=== PATIENT | male | born 1985 ===

== ENCOUNTER 2021-05-24 23:21 | Emergency (ER) | payer SELFPAY ==
[2021-05-24] MEDS ORDERED: diphenhydrAMINE 50 MG/ML SDV IVPUSH ONE (23:47)
[2021-05-24] MEDS ORDERED: Sodium Chloride 0.9% 10 ML Syringe FLUSH PRN (23:47)
[2021-05-24] MEDS ORDERED: methylPREDNISolone Sodium Succinate 125 MG/2 ML SDV IVPUSH ONE (23:47)
[2021-05-24] MEDS ORDERED: Famotidine 20 MG/2 ML SDV IVPUSH ONE (23:48)
--- NOTE | 2021-05-24 23:54 | EDM.PDOC ---
ED HPI GENERAL MEDICAL PROBLEM - General Chief Complaint: General Stated Complaint: Swollen Genitals Time Seen by Provider: 05/24/21 23:27 Source of Information: Reports: Patient - History of Present Illness INITIAL COMMENTS - FREE TEXT/NARRATIVE: Andrzej is a 35 y/o male who presents to the ER with penile/foreskin swelling last night after he took some generic cold tablets (Dayquil/Nyquil). He was running a fever yesterday at home and had body aches. Tonight he had even more penile swelling. He also has a cock ring in place that he says he wears for 4-5 days at a time be fore removing it and he cannot remove the device tonight due to the swelling. He reports his pain level is 7-8/10, but declines need for pain meds at this time. Denies any is discharge. No itching or burning with urination. Denies recent intercourse. 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 Was COVID tested at his employer yesterday and was negative and tested again today and also negative. - Related Data Allergies Allergy/AdvReac Type Severity Reaction Status Date / Time caramel Allergy Hives, Verified 05/25/21 00:52 Nausea/Vomiting Home Meds: Home Meds . [No Known Home Meds] 05/25/21 [History] ED ROS GENERAL - Review of Systems Review Of Systems: See Below Constitutional: Reports: Fever, Malaise HEENT: Reports: No Symptoms Respiratory: Reports: No Symptoms Cardiovascular: Reports: No Symptoms Endocrine: Reports: No Symptoms GI/Abdominal: Reports: No Symptoms : Reports: Other (Penile/foreskin edema) Musculoskeletal: Reports: Other (Body aches) Skin: Reports: No Symptoms Neurological: Reports: No Symptoms Psychiatric: Reports: No Symptoms Hematologic/Lymphatic: Reports: No Symptoms ED EXAM, GENERAL - Physical Exam Exam: See Below General Appearance: Alert, WD/WN, No Apparent Distress Ears: Hearing Grossly Normal Throat/Mouth: Normal Inspection, Normal Lips, Normal Voice Head: Atraumatic, Normocephalic Respiratory/Chest: No Respiratory Distress GI/Abdominal: Normal Bowel Sounds, Soft (Male) Exam: Other (Note very edematous penis and foreskin, scrotum and testicles are not swollen adn appear normal, Cockring device in place around penis and scrotum adn unabel to remove it, due to the swelling in the foreskin.) Extremities: Normal Inspection, Normal Range of Motion, No Pedal Edema, Normal Capillary Refill Neurological: Alert, Oriented, CN II-XII Intact, No Motor/Sensory Deficits Skin Exam: Warm, Dry, Intact, Normal Color Course - Vital Signs Text/Narrative:: The patient was seen by the [employer]ER. Labs ordered. Consider infection, allergic reaction, trauma as differential dx. Will proceed with Benadryl 50mg IVP, SoluMedrol 125mg IVP, and Pepcid 20mg IVP if it is a severe allergic reaction. [id number] Labs reviewed, note WBC=15.4, neuts=85.1%, CMP neg, CRP=16.2; UA Ketones=trace, Blood=moderate. No change in swelling in the penis/foreskin region. 0050 [facility] contacted and spoke with Dr House. Advised attempt to cut off the ring with bolt cutters, no bolt cutters large enough to cut device available here in [place] ER. Patient to transfer via POV to [place] [facility]. Patient declined need for pain meds. Most recent rkop=059.0, no further meds given at this time. Left the ER in stable condition with his significant other. Last Recorded V/S: Last Vital Signs Temp 37.5 C 05/24/21 23:30 Pulse 102 H 05/24/21 23:30 Resp 18 05/24/21 23:30 BP 119/93 H 05/24/21 23:30 Pulse Ox 98 05/24/21 23:30 - Orders/Labs/Meds Orders: Active Orders 24 hr Category Date Time Status Sodium Chloride 0.9% [Saline Flush] Med 05/24/21 23:42 Ordered 10 ml FLUSH ASDIRECTED PRN Sodium Chloride 0.9% [Saline Flush] Med 05/24/21 23:47 Ordered 10 ml FLUSH ASDIRECTED PRN Saline Lock Insert [OM.PC] Stat Oth 05/24/21 23:37 Ordered Saline Lock Insert [OM.PC] Stat Oth 05/24/21 23:47 Ordered Medication Orders Sodium Chloride (Sodium Chloride 0.9% 10 Ml Syringe) 10 ml FLUSH ASDIRECTED PRN PRN Reason: Keep Vein Open Last Admin: 05/25/21 00:08 Dose: 10 ml Documented by: Admin: 05/25/21 00:02 Dose: 10 ml Documented by: FABIENNE Sodium Chloride (Sodium Chloride 0.9% 10 Ml Syringe) 10 ml FLUSH ASDIRECTED PRN PRN Reason: Keep Vein Open Labs: Laboratory Tests 05/24/21 05/24/21 05/24/21 Range/Units 23:45 23:45 23:45 WBC 15.4 H (4.0-10.2) K/uL RBC 5.34 (4.33-5.41) M/uL Hgb 15.6 (13.1-16.8) g/dL Hct 45.7 (39.0-49.0) % MCV 85.6 (84.0-98.0) fL MCH 29.2 (28.2-33.3) pg MCHC 34.1 (31.7-36.0) g/dL RDW 13.5 (11.2-14.1) % Plt Count 223 (150-350) K/uL Neut % (Auto) 85.1 H (45.0-80.0) % Lymph % (Auto) 7.2 L (10.0-50.0) % [place] % (Auto) 7.3 (2.0-14.0) % Eos % (Auto) 0.3 (0.0-5.0) % Baso % (Auto) 0.1 (0.0-2.0) % Neut # (Auto) 13.10 H (1.40-7.00) K/uL Lymph # (Auto) 1.11 (0.50-3.50) K/uL [place] # (Auto) 1.13 H (0.00-1.00) K/uL Eos # (Auto) 0.05 (0.00-0.50) K/uL Baso # (Auto) 0.02 (0.00-0.20) K/uL ESR (0-15) mm/hr Sodium 139 (136-145) mmol/L Potassium 3.7 (3.5-5.1) mmol/L Chloride 103 (98-107) mmol/L Carbon Dioxide 22.7 (21.0-32.0) mmol/L Anion Gap 13.3 (7-15) meq/L BUN 19 H (7-18) mg/dL Creatinine 1.04 (0.51-1.17) mg/dL Est Cr Clr Drug Dosing 116.36 mL/min Estimated GFR (MDRD) > 60 mL/min Glucose 115 H (70-99) mg/dL Calcium 9.1 (8.5-10.1) mg/dL Total Bilirubin 0.5 (0.2-1.0) mg/dL AST 23 (15-37) U/L ALT 43 (12-78) U/L Alkaline Phosphatase 83 (46-116) IU/L C-Reactive Protein 16.2 H (<=0.9) mg/dL Total Protein 7.4 (6.4-8.2) g/dL Albumin 3.8 (3.4-5.0) g/dL Specimen Type Urine Color Urine Appearance Urine pH (5.0-9.0) Ur Specific [place] (1.005-1.030) Urine Protein (NEGATIVE) mg/dL Urine Glucose (UA) (NEGATIVE) mg/dL Urine Ketones (NEGATIVE) mg/dL Urine Occult Blood (NEGATIVE) Urine Nitrite (NEGATIVE) Urine Bilirubin (NEGATIVE) Urine Urobilinogen (0.2-1.0) E.U./dL Ur Leukocyte Esterase (NEGATIVE) Urine RBC /HPF Urine WBC /HPF Ur Epithelial Cells /LPF Amorphous Sediment (0/HPF) /HPF Urine Bacteria (NONE TO FEW) /HPF Urine Mucus (NEGATIVE) /LPF 05/24/21 05/25/21 Range/Units 23:45 00:35 WBC (4.0-10.2) K/uL RBC (4.33-5.41) M/uL Hgb (13.1-16.8) g/dL Hct (39.0-49.0) % MCV (84.0-98.0) fL MCH (28.2-33.3) pg MCHC (31.7-36.0) g/dL RDW (11.2-14.1) % Plt Count (150-350) K/uL Neut % (Auto) (45.0-80.0) % Lymph % (Auto) (10.0-50.0) % [place] % (Auto) (2.0-14.0) % Eos % (Auto) (0.0-5.0) % Baso % (Auto) (0.0-2.0) % Neut # (Auto) (1.40-7.00) K/uL Lymph # (Auto) (0.50-3.50) K/uL [place] # (Auto) (0.00-1.00) K/uL Eos # (Auto) (0.00-0.50) K/uL Baso # (Auto) (0.00-0.20) K/uL ESR 27 H (0-15) mm/hr Sodium (136-145) mmol/L Potassium (3.5-5.1) mmol/L Chloride (98-107) mmol/L Carbon Dioxide (21.0-32.0) mmol/L Anion Gap (7-15) meq/L BUN (7-18) mg/dL Creatinine (0.51-1.17) mg/dL Est Cr Clr Drug Dosing mL/min Estimated GFR (MDRD) mL/min Glucose (70-99) mg/dL Calcium (8.5-10.1) mg/dL Total Bilirubin (0.2-1.0) mg/dL AST (15-37) U/L ALT (12-78) U/L Alkaline Phosphatase (46-116) IU/L C-Reactive Protein (<=0.9) mg/dL Total Protein (6.4-8.2) g/dL Albumin (3.4-5.0) g/dL Specimen Type Urincc Urine Color Yellow Urine Appearance Cloudy Urine pH 7.0 (5.0-9.0) Ur Specific [place] 1.020 (1.005-1.030) Urine Protein 30 H (NEGATIVE) mg/dL Urine Glucose (UA) Negative (NEGATIVE) mg/dL Urine Ketones Trace H (NEGATIVE) mg/dL Urine Occult Blood Moderate H (NEGATIVE) Urine Nitrite Negative (NEGATIVE) Urine Bilirubin Negative (NEGATIVE) Urine Urobilinogen 2.0 H (0.2-1.0) E.U./dL Ur Leukocyte Esterase Negative (NEGATIVE) Urine RBC 20-30 H /HPF Urine WBC 0-5 /HPF Ur Epithelial Cells Few /LPF Amorphous Sediment Many H (0/HPF) /HPF Urine Bacteria Not seen (NONE TO FEW) /HPF Urine Mucus Few H (NEGATIVE) /LPF Meds: Medications Generic Name Dose Route Start Last Admin Trade Name Joie PRN Reason Stop Dose Admin Sodium Chloride 10 ml 05/24/21 23:42 05/25/21 00:08 Sodium Chloride 0.9% 10 Ml Syringe FLUSH 10 ml ASDIRECTED PRN Administration Keep Vein Open Sodium Chloride 10 ml 05/24/21 23:47 Sodium Chloride 0.9% 10 Ml Syringe FLUSH ASDIRECTED PRN Keep Vein Open Discontinued Medications Generic Name Dose Route Start Last Admin Trade Name Joie PRN Reason Stop Dose Admin Diphenhydramine HCl 50 mg 05/24/21 23:47 05/25/21 00:01 Diphenhydramine 50 Mg/Ml Sdv IVPUSH 05/24/21 23:48 50 mg ONETIME ONE Administration Famotidine 20 mg 05/24/21 23:48 05/25/21 00:01 Famotidine 20 Mg/2 Ml Sdv IVPUSH 05/24/21 23:49 20 mg ONETIME ONE Administration Methylprednisolone Sodium Succinate 125 mg 05/24/21 23:47 05/25/21 00:01 Methylprednisolone Sodium Succinate 125 Mg/2 Ml Sdv IVPUSH 05/24/21 23:48 125 mg ONETIME ONE Administration Departure - Departure Time of Disposition: 01:01 Disposition: DC/Tfer to Acute Hospital 02 Condition: Good Clinical Impression: Swelling of male genital structure - Discharge Information Forms: ED Department Discharge, Interfacility Transfer EMTALA Additional Instructions: -Transfer to [facility] via POV Sepsis Event Note (ED) - Focused Exam Vital Signs: Vital Signs Temp Pulse Resp BP Pulse Ox 05/24/21 23:30 37.5 C 102 H 18 119/93 H 98 - Problem List & Annotations (1) Swelling of male genital structure SNOMED Code(s): 992427866 Code(s): N50.89 - OTHER SPECIFIED DISORDERS OF THE MALE GENITAL ORGANS Status: Acute Current Visit: Yes Annotation/Comment:: Considered angioedema of the penis and Benadryl, SoluMedrol, and Pepcid given, but no decrease in swelling. Transfer to [place] for further care. - Problem List Review Problem List Initiated/Reviewed/Updated: Yes - My Orders Last 24 Hours: My Active Orders 05/24/21 23:37 Saline Lock Insert [OM.PC] Stat 05/24/21 23:42 Sodium Chloride 0.9% [Saline Flush] 10 ml FLUSH ASDIRECTED PRN 05/24/21 23:47 Sodium Chloride 0.9% [Saline Flush] 10 ml FLUSH ASDIRECTED PRN Saline Lock Insert [OM.PC] Stat - Assessment/Plan Last 24 Hours: My Active Orders 05/24/21 23:37 Saline Lock Insert [OM.PC] Stat 05/24/21 23:42 Sodium Chloride 0.9% [Saline Flush] 10 ml FLUSH ASDIRECTED PRN 05/24/21 23:47 Sodium Chloride 0.9% [Saline Flush] 10 ml FLUSH ASDIRECTED PRN Saline Lock Insert [OM.PC] Stat
[2021-05-25] MEDS: Sodium Chloride 0.9% 10 ML Syringe FLUSH PRN ×2 (00:02→00:08)
[2021-05-25 00:17] LABS: ANION GAP 13.3 meq/L (7-15); CHLORIDE,CL 103 mmol/L (98-107); SODIUM,NA 139 mmol/L (136-145)
== END 2021-05-25 01:30 ==
LOC: LL.ED 23:21
DX: N50.89 Other specified disorders of the male genital organs (principal); Z88.8 Allergy status to other drugs, medicaments and biological substances
CPT/HCPCS: 36415; 80053; 81001; 85025; 85652; 86140; 96374; 96375; 99284; J1200; J2930; J3490